=== PATIENT | male | born 1995 | race Caucasian/White ===

== ENCOUNTER 2017-12-07 19:30 | Emergency (ER) | payer OTHER ==
[~2017-12-07] VITALS: Ht 177.8 cm; Wt 81.6 kg
[2017-12-07 19:35] VITALS: BP 141/89
--- NOTE | 2017-12-07 21:10 | NUR ---
BIBSELF C/O ANXIETY SINCE 6PM. PT AOX3 RR EVEN AND UNLABORED. NO SOB NOTED. NAD NOTED. NO NVD AT THIS TIME. PT WAITING FOR MD TORRES.
--- NOTE | 2017-12-07 21:12 | NUR ---
ARIEL SANTIAGO AT BEDSIDE FOR EVAL.
[2017-12-07] MEDS ORDERED: LORAZEPAM 1 MG TABLET ONE (21:20)
[2017-12-07] MEDS: LORAZEPAM 1 MG TABLET PO ONE (21:23)
--- NOTE | 2017-12-07 21:45 | NUR ---
PT TO RADIOLOGY FOR CXR
--- NOTE | 2017-12-07 22:17 | NUR ---
Patient discharged to home in stable condition. Written and verbal after care instructions given. Patient verbalizes understanding of instruction. ambulatory with a steady gait. instructed pt not to drive. pt verbalize understanding.
== END 2017-12-07 23:30 | disposition home or self-care (01) ==
LOC: ER 19:36
DX: F41.9 Anxiety disorder, unspecified (principal); R07.89 Other chest pain
CPT/HCPCS: 71045-TC; A4606; Z7610